=== PATIENT | male | born 1985 | race Caucasian/White ===

== ENCOUNTER 2017-07-14 10:33 | Emergency (ER) | payer OTHER ==
[~2017-07-14] VITALS: Ht 175.3 cm; Wt 82.1 kg
[2017-07-14 10:43] VITALS: BP 119/72
[2017-07-14] MEDS ORDERED: DEXAMETHASONE 4 MG/ML, 5ML ONE (11:14)
[2017-07-14] MEDS ORDERED: DEXAMETHASONE 4 MG/ML, 1ML PO ONE (11:30)
== END 2017-07-14 12:10 | disposition home or self-care (01) ==
LOC: ED 11:55
DX: J02.8 Acute pharyngitis due to other specified organisms (principal); B97.89 Other viral agents as the cause of diseases classified elsewhere; Z91.010 Allergy to peanuts
CPT/HCPCS: 87081; 87147; 87880; 99284; J1100